=== PATIENT | male | born 1980 | race Caucasian/White ===

== ENCOUNTER 2021-07-02 17:54 | Emergency (ER) | payer MEDICAID, SELFPAY ==
[2021-07-02 18:24] VITALS: BP 117/72; PULSE 91; RESP 20; TEMP 36.6; O2SAT 94; BMI 20.7
--- NOTE | 2021-07-02 21:19 | ED.WOUNDLAC ---
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 Denies suspected foreign body. States tetanus is up to date. Denies numbness, tingling, weakness Onset (ago): day(s) Related Data Allergies Allergy/AdvReac Type Severity Reaction Status Date / Time No Known Allergies Allergy Unverified 07/11/20 17:09 [No Known Allergies*] Review of Systems Review of Systems: Constitutional: No Fever, No Chills ENT/Mouth: No Ear Pain, No sore throat, No Rhinorrhea Cardiovascular: No Chest Pain, No SOB Respiratory: No Cough, No Sputum, No Wheezing Gastrointestinal: No Nausea, No Vomiting, No Abdominal pain Musculoskeletal: + joint pain, No Myalgias, No Joint Swelling Skin: +Skin Lesions, No rash Neuro: No Weakness, No Numbness, No Paresthesias Yes all other systems are reviewed and are negative Neurologic: Denies Sensory deficit (Neuro) FORMERLY [facility], [facility] Past Medical History Attestation statement: The following information was validated with the patient. Social History Social History Advance Directives: No Advance Directives Information Provided: Yes Physical Exam Vital Signs: Vital Signs: Last Vital Signs Temp 97.9 F 07/02/21 18:24 Pulse 91 07/02/21 18:24 Resp 20 07/02/21 18:24 BP 117/72 07/02/21 18:24 Pulse Ox 94 07/02/21 18:24 Body Mass Index 20.7 Const: General: cooperative, healthy appearing and no acute distress Orientation/consciousness: patient oriented x3 Limitations: no limitations HENMT: Head: Yes normal to inspection Ears: hearing grossly normal bilaterally General nose exam: Normal external nose present Face and sinus: Yes normal facial exam Eyes: General: appearance normal, both eyes and all related structures EOM: EOMs intact bilaterally Neck: Neck: Yes normal visual inspection Resp: Effort & Inspection: normal respiratory effort and no respiratory distress Cardio: Rate: regular rate Peripheral pulses: radial pulses present Skin: Other: 4 cm linear laceration noted to left palmar thenar eminence. Full range of motion intact to thumb/all digits. Thumb to finger opposition intact. Sensation intact to light touch. NV intact Rashes: no rashes Neuro: General: patient oriented x3 Gait exam (Neuro): Normal gait present Sensory Exam: No Sensory deficit (Neuro) MDM - Wound/Laceration MDM Narrative Medical decision making narrative: On exam VSS, NAD, physical exam as above. Will suture wound Procedures Laceration Laceration 1: Site: hand Side (If applicable): left Size (cm): 4 Description: linear Depth: simple, single layer Local Anesthetic: lidocaine 1% Amount of anesthesia used (mL): 4.5 Pre-repair: wound explored Skin layer closed with: nylon Size (cm): 4-0 Number of sutures: 5 Technique: simple, interrupted Discharge Plan Discharge Clinical Impression: Laceration Patient Disposition: Home, Self-Care Instructions: Laceration (ED) Additional Instructions: Return to any emergency department or urgent care in 7-10 days to have the stitches taken out Keep stitches dry and clean Do not get wet for 24 hours After 24 hours you may get wet but only pat dry, do not scrub If her knee working with her hands please however/work gloves If they begin to look infected, red, there is drainage please return to the ED Referrals: [facility] [Primary Care Provider] - 1 week (Return to any emergency department or urgent care in 7-10 days to have the stitches taken out)
== END 2021-07-02 21:45 | disposition home or self-care (01) ==
PROVIDERS: Emergency Provider Internal Medicine
DX: S61.412A Laceration without foreign body of left hand, initial encounter (principal); M79.642 Pain in left hand; W26.0XXA Contact with knife, initial encounter; Y93.9 Activity, unspecified; Y92.9 Unspecified place or not applicable; Y99.9 Unspecified external cause status
CPT/HCPCS: 12002; 99284

== ENCOUNTER 2021-07-08 11:10 | Outpatient (REF) | payer MEDICAID, SELFPAY ==
[2021-07-08 13:33] LABS: COVID-19 Test Negative (Negative)
== END 2021-07-08 11:11 | disposition home or self-care (01) ==
LOC: HO.LAB 11:10
PROVIDERS: Visit Provider Internal Medicine
DX: Z20.822 Contact with and (suspected) exposure to COVID-19 (principal)
CPT/HCPCS: 36415; 87635; C9803

== ENCOUNTER 2022-03-07 09:21 | Emergency (ER) | payer MEDICAID, SELFPAY ==
[2022-03-07 09:26] VITALS: BP 124/72; PULSE 90; O2SAT 98
[2022-03-07 09:39] VITALS: BP 126/89; PULSE 91; RESP 14; TEMP 36.6; O2SAT 100
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
--- NOTE | 2022-03-07 10:01 | HO.SUDE ---
Patient declined SUDE. Encouraged patient to inform staff if he changes his mind and would like to discuss his substance use.
== END 2022-03-07 10:26 | disposition home or self-care (01) ==
PROVIDERS: Emergency Provider Emergency Medicine
DX: F11.10 Opioid abuse, uncomplicated (principal)
CPT/HCPCS: 99283